=== PATIENT | female | born 1985 | race American Indian/Alaskan Native ===

== ENCOUNTER 2017-05-08 17:11 | Emergency (ER) | payer BC ==
--- NOTE | 2017-05-08 20:13 | XRay Report ---
FINAL REPORT PROCEDURE: XR ANKLE 3+V RT TECHNIQUE: Three views of the right ankle are obtained HISTORY: right ankle injury after a fall COMPARISON: No prior studies are available for comparison. FINDINGS: Soft tissue swelling is seen. Moderate size calcaneal plantar spur is seen. There is no fracture or dislocation. No arthritic changes are seen. IMPRESSION: Soft tissue swelling is seen without evidence of fracture.
--- NOTE | 2017-05-08 22:55 | Emergency Department Report ---
ED Lower Extremity HPI - General Chief Complaint: Extremity Injury, Lower Stated Complaint: RIGHT ANKLE PAIN Time Seen by Provider: 05/08/17 22:52 Source: patient Mode of arrival: Ambulatory Limitations: No Limitations - History of Present Illness Initial Comments: This is a 37 y.o. female presenting with right ankle pain from fall. Patient states she was playing in the snow yesterday with children and slipped on ice and fell backwards and right foot twisted under her leg. It is difficult to bear weight and it began to swell. Denies discoloration, numbness,and tingling. MD Complaint: ankle injury (right) -: Sudden Injury: Ankle: Right Type of Injury: hyperextension Place: home Severity: moderate Severity scale (0 -10): 9 Improves With: NSAID, cold therapy, immobilization, rest Worsens With: weight bearing, movement Context: fall Associated Symptoms: swelling, able to partially bear weight, ambulatory. denies: snap/pop sensation, numbness, tingling, unable to bear weight Treatments Prior to Arrival: cold therapy, NSAIDS - Related Data Home Medications Medication Instructions Recorded Confirmed Last Taken OxyCODONE 10 mg PO Q4-6H PRN 09/28/14 09/28/14 09/28/14 diphenhydrAMINE [Benadryl] 25 mg PO Q4-6H PRN 09/28/14 09/28/14 09/28/14 Previous Rx's Medication Instructions Recorded Last Taken Type ALBUTEROL Inhaler [Proair] 2 puff IH QID PRN #1 inhalation 09/29/14 Unknown Rx Amoxicillin 500 mg PO BID #20 tablet 09/29/14 Unknown Rx HYDROcodone/APAP 5-325 [[place] 1 - 2 each PO Q6HR PRN #14 tablet 09/29/14 Unknown Rx 5/325] Ibuprofen 800 mg PO Q6HR 7 Days #28 tablet 05/08/17 Unknown Rx Allergies Allergy/AdvReac Type Severity Reaction Status Date / Time No Known Allergies Allergy Verified 09/29/14 01:45 ED Review of Systems ROS: Stated complaint: RIGHT ANKLE PAIN Other details as noted in HPI Constitutional: no symptoms reported, see HPI. denies: chills, diaphoresis, fever, malaise, weakness Respiratory: no symptoms reported, see HPI. denies: cough, orthopnea, shortness of breath, SOB with exertion, SOB at rest, stridor, wheezing Cardiovascular: as per HPI. denies: chest pain, palpitations, dyspnea on exertion, orthopnea, edema, syncope, paroxysmal nocturnal dyspnea Musculoskeletal: as per HPI, joint swelling, arthralgia. denies: back pain, myalgia Skin: as per HPI. denies: rash, lesions, change in color, change in hair/nails , pruritus Neurological: as per HPI. denies: headache, weakness, numbness, paresthesias, confusion, abnormal gait, vertigo Psychiatric: as per HPI. denies: anxiety, depression, auditory hallucinations, visual hallucinations, homicidal thoughts, suicidal thoughts ED Past Medical Hx - Past Medical History Previous Medical History?: Yes Additional medical history: PCOS - Surgical History Past Surgical History?: Yes Additional Surgical History: GASTRIC SURGERY 09/25/14 - Social History Smoking Status: Current Some Day Smoker Substance Use Type: Alcohol - Medications Home Medications: Home Medications Medication Instructions Recorded Confirmed Last Taken Type OxyCODONE 10 mg PO Q4-6H PRN 09/28/14 09/28/14 09/28/14 History diphenhydrAMINE [Benadryl] 25 mg PO Q4-6H PRN 09/28/14 09/28/14 09/28/14 History ALBUTEROL Inhaler [Proair] 2 puff IH QID PRN #1 inhalation 09/29/14 Unknown Rx Amoxicillin 500 mg PO BID #20 tablet 09/29/14 Unknown Rx HYDROcodone/APAP 5-325 [[place] 1 - 2 each PO Q6HR PRN #14 tablet 09/29/14 Unknown Rx 5/325] Ibuprofen 800 mg PO Q6HR 7 Days #28 tablet 05/08/17 Unknown Rx ED Physical Exam - General Limitations: No Limitations General appearance: alert, in no apparent distress - Respiratory Respiratory exam: Present: normal lung sounds bilaterally. Absent: respiratory distress, wheezes, rales, rhonchi, stridor, chest wall tenderness, accessory muscle use, decreased breath sounds, prolonged expiratory - Cardiovascular Cardiovascular Exam: Present: regular rate, normal rhythm, normal heart sounds. Absent: bradycardia, tachycardia, irregular rhythm, systolic murmur, diastolic murmur, rubs, gallop, clicks, JVD, S3, S4 - GI/Abdominal GI/Abdominal exam: Present: soft, normal bowel sounds. Absent: distended, tenderness, guarding, rebound, rigid, diminished bowel sounds, hyperactive bowel sounds, hypoactive bowel sounds, organomegaly, mass, bruit, pulsatile mass , hernia - Expanded Lower Extremity Exam Right Ankle exam: Present: tenderness, swelling (mild swelling, limited ROM with extension and flexion due to pain). Absent: abrasion, laceration, ecchymosis, deformity, crepidus, dislocation, erythema, anterior draw sign Foot/Toe exam: Present: normal inspection, full ROM, tenderness, swelling ( nonpitting on right). Absent: abrasion, laceration, ecchymosis, deformity, crepidus, dislocation, erythema, amputation, puncture wound, foreign body, calcaneal tenderness, tenderness at base of 5th metatarsal, nail avulsion, subungual hematoma Neuro vascular tendon exam: Present: no vascular compromise. Absent: pulse deficit, abnormal cap refill, motor deficit, sensory deficit, tendon deficit, extremity cold to touch, pallor, abnormal 2-point discrimination, decreased fine /light touch, foot drop, peroneal nerve deficit, significant pain with passive ROM of distal joint Gait: Positive: observed and limited by pain. Negative: observed and normal, not tested/not observed, antalgic ED Course Vital Signs 05/08/17 17:43 Temperature 98.3 F Pulse Rate 74 Respiratory 20 Rate Blood Pressure 153/77 O2 Sat by Pulse 99 Oximetry ED Lower Extremity MDM - Radiology Data Radiology results: image reviewed interpreted by me: radiology FINAL REPORT PROCEDURE: XR ANKLE 3+V RT TECHNIQUE: Three views of the right ankle are obtained HISTORY: right ankle injury after a fall COMPARISON: No prior studies are available for comparison. FINDINGS: Soft tissue swelling is seen. Moderate size calcaneal plantar spur is seen. There is no fracture or dislocation. No arthritic changes are seen. IMPRESSION: Soft tissue swelling is seen without evidence of fracture. Critical care attestation.: If time is entered above; I have spent that time in minutes in the direct care of this critically ill patient, excluding procedure time. ED Disposition Clinical Impression: Moderate right ankle sprain Qualifiers: Encounter type: initial encounter Qualified Code(s): S93.401A - Sprain of unspecified ligament of right ankle, initial encounter Disposition: TO HOME OR SELFCARE Is pt being admited?: No Does the pt Need Aspirin: No Condition: Stable Instructions: Ankle Sprain (ED) Additional Instructions: Follow-up with PCP. Rest and elevation. Crutch walking for 2 to 3 days. Continue compression wrap to control swelling. Prescriptions: Ibuprofen 800 mg PO Q6HR 7 Days #28 tablet Referrals: PRIMARY CARE, [Primary Care Provider] - 3-5 Days [facility] [Outside] - 3-5 Days [facility] [Outside] - 3-5 Days Time of Disposition: 23:54 Print Language: BURMESE
[2017-05-09 00:10] VITALS: BP 150/68
== END 2017-05-09 00:11 | disposition home or self-care (01) ==
LOC: ED 17:11
DX: S93.491A Sprain of other ligament of right ankle, initial encounter (principal); F17.200 Nicotine dependence, unspecified, uncomplicated; E28.2 Polycystic ovarian syndrome; W00.0XXA Fall on same level due to ice and snow, initial encounter; Y93.89 Activity, other specified; Y92.89 Other specified places as the place of occurrence of the external cause; Y99.8 Other external cause status
CPT/HCPCS: 99284